=== PATIENT | male | born 1955 | race Caucasian/White ===

== ENCOUNTER 2017-06-18 15:55 | Emergency (ER) | payer OTHER ==
[~2017-06-18] VITALS: Ht 172.7 cm; Wt 83.6 kg
[~2017-06-18 15:55] MED LIST: B-COTAB41 PO; CALC500T42 PO; ECOT81TA2 PO; FISH100020 PO; MECL-62 PO; MULTCAP14 PO; VITA-83 PO
[2017-06-18 16:10] VITALS: BP 139/85; PULSE 66; RESP 20; TEMP 97.6; O2SAT 98
[2017-06-18 17:26] LABS: AUTOMATED NEUTROPHIL # 5.4 TH/MM3 (1.8-7.7); BASOPHIL # 0.1 TH/MM3 (0-0.2); BASOPHIL % 1.2 % (0.0-2.0); EOSINOPHIL # 0.2 TH/MM3 (0-0.4); EOSINOPHIL % 2.3 % (0.0-4.0); HEMATOCRIT 44.5 % (39.0-51.0); HEMOGLOBIN 15.4 GM/DL (13.0-17.0); LYMPH % 18.4 % (9.0-44.0); LYMPHOCYTE # 1.4 TH/MM3 (1.0-4.8); MEAN CELL VOLUME 87.7 FL (80.0-100.0); MEAN CORPUSCULAR HEMOGLOBIN 30.4 PG (27.0-34.0); MEAN CORPUSCULAR HGB CONC 34.7 % (32.0-36.0); MEAN PLATELET VOLUME 9.5 FL (7.0-11.0); MONO % 6.6 % (0.0-8.0); MONOCYTE # 0.5 TH/MM3 (0-0.9); NEUT % 71.5 % (16.0-70.0); PLATELET COUNT 203 TH/MM3 (150-450); RED BLOOD COUNT 5.08 MIL/MM3 (4.50-5.90); RED CELL DISTRIBUTION WIDTH 12.9 % (11.6-17.2); WHITE BLOOD COUNT 7.6 TH/MM3 (4.0-11.0)
[2017-06-18 17:31] LABS: PROTHROMBIN TIME - PATIENT 10.5 SEC (9.8-11.6)
[2017-06-18 17:33] LABS: ALBUMIN 3.9 GM/DL (3.4-5.0); AST (GOT) 26 U/L (15-37); BICARBONATE 26.5 MEQ/L (21.0-32.0); BLOOD UREA NITROGEN 15 MG/DL (7-18); CALCIUM 8.9 MG/DL (8.5-10.1); CHLORIDE 108 MEQ/L (98-107); CREATININE 0.89 MG/DL (0.60-1.30); GLOMERULAR FILTRATION RATE 87 ML/MIN (>89); GLUCOSE,RANDOM 71 MG/DL (74-106); SODIUM (NA) 143 MEQ/L (136-145)
[2017-06-18 17:38] LABS: ALKALINE PHOSPHATASE 73 U/L (45-117); ALT (GPT) 44 U/L (12-78); TOTAL BILIRUBIN ADULT 0.6 MG/DL (0.2-1.0); TOTAL PROTEIN 7.5 GM/DL (6.4-8.2)
[2017-06-18 17:38] LABS: BACTERIA, URINE OCC /hpf; BILIRUBIN, URINE NEG (NEG); BLOOD, URINE NEG (NEG); GLUCOSE,URINE NEG (NEG); KETONE, URINE NEG (NEG); MUCUS URINE FEW /lpf (OCC); NITRITE,URINE NEG (NEG); SQUAMOUS EPITHELIAL CELL URINE <1 /hpf (0-5); URINE COLOR YELLOW (YELLW/STRAW); URINE LEUKOCYTE ESTERASE NEG (NEG)
[2017-06-18] MEDS ORDERED: ASPI81TA81 PO (18:09)
[2017-06-18] MEDS ORDERED: SODIUM CHLOR 0.9% 1000 ML INJ 1,000 ML IV SCH (18:34)
[2017-06-18 18:35] VITALS: BP 137/71; PULSE 58; RESP 16; RESP 17; TEMP 97.8; O2SAT 98; O2SAT 99
[2017-06-18] MEDS ORDERED: ONDANSETRON HCL 4 MG/2 ML VIAL IVP ONE (18:45)
[2017-06-18] MEDS ORDERED: SODIUM CHLORIDE 0.9% FLUSH 10 ML FLUSH IV FLUSH PRN (18:45)
--- NOTE | 2017-06-18 19:01 | PD ---
HPI Chief Complaint: Abnormal Results Time Seen by Provider: 18:11 Travel History International Travel<30 days: No Contact w/Intl Traveler<30days: No Traveled to known affect area: No History of Present Illness HPI 61-year-old male presents to the ED via EMS for evaluation of sudden onset 8/10 cramping abdominal pain prior to arrival. Patient states that he attributed the pain to eating fast food about a half an hour before onset. He states that he went to the bathroom to attempt a bowel movement. He states that while he was sitting on the commode straining he had a near syncopal episode. States that he became very diaphoretic and felt weak. He endorses producing a small, loose, nonbloody bowel movements which resolved his abdominal pain. On presentation he complains of mild nausea. No other somatic complaints. Patient states that he has had a similar episode in the past approximately 2 years ago. He also states that he has a history of colitis and had a upper and lower endoscopy approximately 2 years ago. States that he is otherwise been in good health. 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 PAIN, NEW ONSET) Genitourinary: No Immune Disorder: No Musculoskeletal: No Neurologic: No Psychiatric: No Respiratory: No Past Surgical History Oral Surgery: Yes (MOUTH RECONSTRUCTION/DENTAL) Pacemaker: No Other Surgery: Yes Social History Alcohol Use: No Tobacco Use: No Substance Use: No Allergies-Medications (Allergen,Severity, Reaction): Coded Allergies: No Known Allergies (Verified Adverse Reaction, Unknown, 06/18/17) Reported Meds & Prescriptions Reported Meds & Active Scripts Active Reported Aspir-81 (Aspirin) 81 Mg Tabdr 1 Tab PO DAILY Review of Systems Except as stated in HPI: all other systems reviewed are Neg Physical Exam Narrative GENERAL: Well-nourished, well-developed white male in no acute distress. SKIN: Focused skin assessment warm/dry. HEAD: Normocephalic. EYES: No scleral icterus. No injection or drainage. NECK: Supple, trachea midline. No JVD or lymphadenopathy. CARDIOVASCULAR: Regular rate and rhythm without murmurs, gallops, or rubs. RESPIRATORY: Breath sounds clear and equal bilaterally. No accessory muscle use. GASTROINTESTINAL: Abdomen soft, non-tender, nondistended. No palpable masses. Active bowel sounds. MUSCULOSKELETAL: No cyanosis, or edema. BACK: Nontender without obvious deformity. No CVA tenderness. Data Data Last Documented VS Vital Signs Date Time Temp Pulse Resp B/P (MAP) Pulse Ox O2 Delivery O2 Flow Rate FiO2 06/18/17 21:49 06/18/17 18:35 16 99 Room Air 06/18/17 18:35 97.8 58 Orders Orders Complete Blood Count With Diff (06/18/17 16:13) Comprehensive Metabolic Panel (06/18/17 16:13) Lipase (06/18/17 16:13) Prothrombin Time / Inr (Pt) (06/18/17 16:13) Act Partial Throm Time (Ptt) (06/18/17 16:13) Urinalysis - C+S If Indicated (06/18/17 16:13) Iv Access Insert/Monitor (06/18/17 18:34) Ecg Monitoring (06/18/17 18:34) Oximetry (06/18/17 18:34) Ondansetron Inj (Zofran Inj) (06/18/17 18:45) Sodium Chlor 0.9% 1000 Ml Inj (Ns 1000 M (06/18/17 18:34) Sodium Chloride 0.9% Flush (Ns Flush) (06/18/17 18:45) Lactic Acid (06/18/17 19:18) Ed Discharge Order (06/18/17 21:15) Labs Laboratory Tests Test 06/18/17 16:50 06/18/17 17:00 06/18/17 19:48 White Blood Count 7.6 TH/MM3 Red Blood Count 5.08 MIL/MM3 Hemoglobin 15.4 GM/DL Hematocrit 44.5 % Mean Corpuscular Volume 87.7 FL Mean Corpuscular Hemoglobin 30.4 PG Mean Corpuscular Hemoglobin Concent 34.7 % Red Cell Distribution Width 12.9 % Platelet Count 203 TH/MM3 Mean Platelet Volume 9.5 FL Neutrophils (%) (Auto) 71.5 % Lymphocytes (%) (Auto) 18.4 % Monocytes (%) (Auto) 6.6 % Eosinophils (%) (Auto) 2.3 % Basophils (%) (Auto) 1.2 % Neutrophils # (Auto) 5.4 TH/MM3 Lymphocytes # (Auto) 1.4 TH/MM3 Monocytes # (Auto) 0.5 TH/MM3 Eosinophils # (Auto) 0.2 TH/MM3 Basophils # (Auto) 0.1 TH/MM3 CBC Comment AUTO DIFF Differential Comment AUTO DIFF CONFIRMED Platelet Estimate NORMAL Platelet Morphology Comment NORMAL Prothrombin Time 10.5 SEC Prothromb Time International Ratio 1.0 RATIO Activated Partial Thromboplast Time 23.4 SEC Blood Urea Nitrogen 15 MG/DL Creatinine 0.89 MG/DL Random Glucose 71 MG/DL Total Protein 7.5 GM/DL Albumin 3.9 GM/DL Calcium Level 8.9 MG/DL Alkaline Phosphatase 73 U/L Aspartate Amino Transf (AST/SGOT) 26 U/L Alanine Aminotransferase (ALT/SGPT) 44 U/L Total Bilirubin 0.6 MG/DL Sodium Level 143 MEQ/L Potassium Level 3.8 MEQ/L Chloride Level 108 MEQ/L Carbon Dioxide Level 26.5 MEQ/L Anion Gap 9 MEQ/L Estimat Glomerular Filtration Rate 87 ML/MIN Lipase 233 U/L Urine Color YELLOW Urine Turbidity CLEAR Urine pH 6.0 Urine Specific [place] 1.025 Urine Protein 30 mg/dL Urine Glucose (UA) NEG mg/dL Urine Ketones NEG mg/dL Urine Occult Blood NEG Urine Nitrite NEG Urine Bilirubin NEG Urine Urobilinogen LESS THAN 2.0 MG/DL Urine Leukocyte Esterase NEG Urine RBC LESS THAN 1 /hpf Urine WBC 6 /hpf Urine Squamous Epithelial Cells <1 /hpf Urine Bacteria OCC /hpf Urine Mucus FEW /lpf Microscopic Urinalysis Comment CULT NOT INDICATED Lactic Acid Level 1.1 mmol/L [facility] Medical Decision Making Medical Screen Exam Complete: Yes Emergency Medical Condition: Yes ( ) Differential Diagnosis GERD versus gastritis versus diverticulitis versus colitis versus vasovagal syncope versus other Narrative Course 61-year-old male presents to the ED via EMS for evaluation of sudden onset 8/10 cramping abdominal pain prior to arrival. Patient states that he attributed the pain to eating fast food about a half an hour before onset. He states that he went to the bathroom to attempt a BM, while on the commode straining he had a near syncopal episode. States that he became very diaphoretic and felt weak. He endorses producing a small, loose, nonbloody bowel movements which resolved his abdominal pain. On presentation he complains of mild nausea. No other somatic complaints. Patient states that he has had a similar episode in the past approximately 2 years ago. He also states that he has a history of colitis and had a upper and lower endoscopy approximately 2 years ago. States that he is otherwise been in good health. Vitals reviewed. Abdominal exam is completely benign. IV was established. Patient was administered 1 L normal saline, 4 mg Zofran. No concerning abnormalities of the CBC, CMP, coags, UA. Lactic acid 1.1. Lipase 233. Patient is instructed to eat a bland diet for the next few days, return to normal, gentle activities as tolerated, follow with his primary care provider. He was given strict instructions to return should symptoms recur or worsen. He indicated understanding the instructions. He is stable and discharged home. Diagnosis Primary Impression: Abdominal pain Qualified Codes: R10.30 - Lower abdominal pain, unspecified Referrals: Primary Care Physician Additional Instructions: Rest, hydrate. Eat a bland diet for the next few days. Follow with the primary care provider. Return to the ED for worsening symptoms or any urgent/ emergent medical condition. Disposition: 01 DISCHARGE HOME Condition: Stable Esme Vicente Jun 18, 2017 19:01
== END 2017-06-18 22:00 | disposition home or self-care (01) ==
LOC: NEPE 15:55
DX: R10.30 Lower abdominal pain, unspecified (principal); R55 Syncope and collapse; R61 Generalized hyperhidrosis; R53.1 Weakness; R11.0 Nausea; Z87.19 Personal history of other diseases of the digestive system; Z86.79 Personal history of other diseases of the circulatory system
CPT/HCPCS: 80053; 81001; 83605; 83690; 85025; 85610; 85730; 96361; 96374; 99284; J2405; J7030